=== PATIENT | female | born 1985 | race Caucasian/White ===

== ENCOUNTER → 2020-04-23 14:44 | Outpatient (CLI) | payer OTHER, SELFPAY ==
--- NOTE | 2020-04-23 | DI.ECHO.S_ITS ---
[facility] +---------+ : : [address] : [place] : : : : [id number] : : : : Phone: [phone]+ Echocardiogram Report + + :Name: AMBER LARA Study Date: 04/23/2020 Height: 68 in : :[facility] Weight: 158 lb : : Gender: Female BSA: 1.8 m2 : :: 1985 Age: 35 yrs BP: 108/64 mmHg: :Reason For Study: LAFB : :Ordering Physician: MAYA, : :SUSHMA Performed By: Nina Sheffield : :Referring: SUSHMA PETERSON : + + Interpretation Summary 1) Normal left ventricular thickness, size, wall motion, and systolic function (EF 55-60%). 2) Normal right ventricular size and function. 3) No significant valvular abnormalities. 4) No prior Echo available for comparison. Procedure: A two-dimensional transthoracic echocardiogram with color flow and Doppler was performed. The study quality was technically good. There is no prior echocardiogram noted for this patient. The patient was in sinus rhythm with heart rates between 63-75 bpm during the exam. Left Ventricle: The left ventricle is normal in size and wall thickness. The ejection fraction is estimated to be 55-60%. Left ventricular systolic function is normal without focal wall motion abnormalities. Diastolic parameters suggest probable normal left ventricular diastolic function and normal filling pressures. Right Ventricle: The right ventricle is normal in size and function. Atria: Both atria are normal in size. There is no Doppler evidence for an interatrial shunt. Mitral Valve: The mitral valve is normal in structure and function. There is trace mitral regurgitation. Aortic Valve: The aortic valve is trileaflet. The aortic valve opens well. There is no aortic valve stenosis. No aortic regurgitation is present. Tricuspid Valve: The tricuspid valve is normal in structure and function. There is mild tricuspid regurgitation. The right ventricular systolic pressure is estimated to be at least 18 mmHg based on an estimated right atrial pressure of 3 mm Hg. Pulmonic Valve: The pulmonic valve is normal in structure and function. There is no pulmonic valvular regurgitation. Great Vessels: The aortic root is moderately dilated. The ascending aorta is normal in size. The IVC is of normal diameter and collapses greater than 50% with a sniff. This suggests a low right atrial pressure of 3 mm Hg. Pericardium/ Pleura There is no pericardial effusion. There is no pleural effusion. MMode/2D Measurements & Calculations LVIDd: 5.1 cm Ao root diam: 3.7 cm LVIDs: 3.7 cm asc Aorta Diam: 2.9 cm FS: 27.2 % Ao Arch Diam (Prox Trans): 2.6 cm EPSS: 1.0 cm IVSd: 0.86 cm LVPWd: 0.94 cm LV cedillo. diameter/BSA (cm/m^2): 2.7 LV sys. diameter/BSA (cm/m^2): 2.0 LA A2 area: 16.8 cm2 RA long axis: 4.3 cm LA A4 area: 15.2 cm2 RA area: 11.6 cm2 LA length (vol): 4.4 cm RA vol: 26.9 ml LA vol: 48.9 ml RA : 14.5 ml/m2 LA vol index: 26.4 ml/m2 IVC diam: 1.5 cm RVD1 (basal): 3.2 cm TAPSE: 1.9 cm Doppler Measurements & Calculations Ao V2 max: 119.2 cm/sec LVOT Max Zachary: 86.5 cm/sec Ao V2 mean: 87.2 cm/sec LV V1 max P.0 mmHg Ao max P.7 mmHg LV V1 VTI: 19.0 cm Ao mean P.3 mmHg sev ratio: 0.73 Ao V2 VTI: 26.1 cm MV E max zachary: 74.1 cm/sec TR max zachary: 190.2 cm/sec MV A max zachary: 50.4 cm/sec TR max P.5 mmHg MV E/A: 1.5 PA V2 max: 85.6 cm/sec Med Peak E' Zachary: 8.2 cm/sec PA V2 mean: 62.0 cm/sec E/E' med: 9.1 PA mean P.7 mmHg Lat Peak E' Zachary: 12.9 cm/sec PA pr(Accel): 1.9 mmHg E/E' lat: 5.7 E/e' average: 7.4 MV dec time: 0.18 sec Reading Physician:12:38 PM
== END ==
PROVIDERS: Referring Provider Internal Medicine Cardiovascular Disease; Visit Provider Internal Medicine Cardiovascular Disease
DX: I07.1 Rheumatic tricuspid insufficiency (principal); I77.810 Thoracic aortic ectasia; I44.4 Left anterior fascicular block
CPT/HCPCS: 93306